=== PATIENT | male | born 1960 | race Caucasian/White ===

== ENCOUNTER → 2016-12-14 | Day surgery (SDC) | payer BC ==
[2016-12-06 10:46] VITALS: Ht 172.7 cm; Wt 92.3 kg
[~2016-12-14] VITALS: Ht 172.7 cm; Wt 92.3 kg
[~2016-12-14] MED LIST: ASCA500 PO; ASPI81TA28 PO; COEN90TA PO; LIDOCAINE HCL 2% 2 ML VIAL (20MG/ML) ONE; MIDAZOLAM HCL 1 MG/ML 2ML VIAL ONE; MULT-506 PO; OMEG10007 PO; ONDANSETRON INJ 2 MG/ML 2 ML VIAL ONE; PROPOFOL IV EMULSION 10 MG/ML 20 ML VIAL IV ONE; SIMV10TA2 PO; SODIUM CHLORIDE 0.9% 500ML 500 ML IV ONE
[2016-12-14 10:45] VITALS: TEMP 37.2
--- NOTE | 2016-12-14 11:20 | Endo History and Physical ---
History & Physical Date of Service: Dec 14, 2016. Chief Complaint: Screening, Hx polyps Referring Physician: Dr. Chandler History of Present Illness 56 yo CM who presents for colonoscopy secondary to history of colon polyps. Past Surgical History Hx Cardiac Surgery: No Hx Internal Defibrillator: No Hx Pacemaker: No Hx Abdominal Surgery: No Hx of Implantable Prosthesis: No Hx Post-Op Nausea and Vomiting: No Hx Cancer Surgery: No Hx Thoracic Surgery: No Hx Orthopedic: No Hx Urinary Tract Surgery: No Family History Polyp Social History Smoking Status: Never Smoker Hx Substance Use: No Hx Alcohol Use: Yes (OCCASIONAL) Allergies Coded Allergies: No Known Allergies (Unverified , 12/06/16) Current Medications Reported Home Medications Medications Dose Route/Sig Max Daily Dose Days Date Category Vitamin C (Ascorbic Acid) 500 Mg Tab 1 Tab PO QAM 12/06/16 Reported Aspirin Ec (Aspirin) 81 Mg Tab 81 Mg PO QAM 12/06/16 Reported [place]-3 (Fish Oil) 1 Ea Cap 1 Cap PO QAM 12/06/16 Reported Co Q10 (Coenzyme Q10) 90 Mg Tab 1 Tab PO HS 12/06/16 Reported Multivitamin (Multivitamins) Tab 1 Tab PO QAM 12/06/16 Reported Zocor (Simvastatin) 10 Mg Tab 10 Mg PO HS 12/06/16 Reported Vital Signs Weight (Kilograms): 92.27 Height (Feet): 5 Height (Inches): 8 Date Time Temp Pulse Resp B/P Pulse Ox O2 Delivery O2 Flow Rate FiO2 12/14/16 10:45 37.2 85 20 149/88 97 Room Air Physical Exam General Appearance: WD/WN, no apparent distress Respiratory/Chest: Auscultation: breath sounds normal Cardiovascular: Heart Auscultation: RRR Abdomen: Bowel Sounds: normal Inspection & Palpation: soft, non-distended, no tenderness, guarding & rebound Assessment and Plan Assessment: 56 yo CM who presents for colonoscopy secondary to history of colon polyps. Plan: Proceed with colonoscopy.
--- NOTE | 2016-12-14 11:39 | Discharge Instructions ---
Endoscopy Patient Instructions Date / Procedure(s) Performed Dec 14, 2016. Colonoscopy Allergy Information Coded Allergies: No Known Allergies (Unverified , 12/06/16) Discharge Date / Findings Dec 14, 2016. Internal hemorrhoids Medication Instructions OK to resume all medications today as prescribed Reported Home Medications Medications Dose Route/Sig Max Daily Dose Days Date Category Vitamin C (Ascorbic Acid) 500 Mg Tab 1 Tab PO QAM 12/06/16 Reported Aspirin Ec (Aspirin) 81 Mg Tab 81 Mg PO QAM 12/06/16 Reported [place]-3 (Fish Oil) 1 Ea Cap 1 Cap PO QAM 12/06/16 Reported Co Q10 (Coenzyme Q10) 90 Mg Tab 1 Tab PO HS 12/06/16 Reported Multivitamin (Multivitamins) Tab 1 Tab PO QAM 12/06/16 Reported Zocor (Simvastatin) 10 Mg Tab 10 Mg PO HS 12/06/16 Reported Provider Instructions Activity Restrictions - No exercising or heavy lifting for 24 hours. - Do not drink alcohol the day of the procedure. - Do not drive a car or operate machinery until the day after the procedure. - Do not make any important decisions or sign important papers in 24 hours after the procedure. Following Day: - Return to full activity which may include returning to work/school. Diet Start your diet with liquids and light foods (jello, soup, juice, toast). Then eat your usual diet if not nauseated. Treatment For Common After Affects For mild abdominal pain, bloating, or excessive gas: - Rest - Eat lightly - Lie on right side Follow-Up Information Follow-up with Dr. Chandler as scheduled Anesthesia Information What You Should Know You have had a procedure that required some medicine to reduce anxiety and discomfort. This treatment is called moderate sedation. After receiving the treatment, you may be sleepy, but you will be able to breathe on your own. The effects of the treatment may last for several hours. Follow these instructions along with Activity/Diet recommendations noted above: * Do NOT do anything where dizziness or clumsiness would be dangerous. * Rest quietly at home today, then you can be up and about tomorrow. * Have a responsible person stay with you the rest of today. * You may have had an I.V. today. If so, you may take the dressing off later today. Recommendations Call your doctor if: * Trouble breathing * Continuous vomiting for more than 24 hours * Temperature above 101 degrees * Severe abdominal pain or bloating * Pain not relieved by pain medicine ordered * There is increased drainage or redness from any incision * A large amount of rectal bleeding greater than 2-3 tablespoons. (If you had a polyp/s removed or have hemorrhoids, a small amount of blood - from the rectum is to be expected.) * You have any unanswered questions or concerns. IN THE EVENT OF A SERIOUS EMERGENCY, GO TO THE NEAREST EMERGENCY ROOM Your discharge instructions were prepared by provider Kaushal Barba. Patient Instructions Signature Page Art Gusman Patient (or Guardian) Signature/Date: I have read and understand the instructions given to me by my caregivers. Caregiver/RN/Doctor Signature/Date: The above-named patient and/or guardian has received patient instructions on this date. + Original Patient Signature Page (only) stays with chart. Please make copy for patient.
--- NOTE | 2016-12-14 11:42 | GI REPORT ---
Procedure Date: 12/14/2016 11:17 AM Procedure: Colonoscopy Indications: High risk colon cancer surveillance: Personal history of colonic polyps Medicines: Monitored Anesthesia Care Complications: No immediate complications. Estimated Blood Loss: Estimated blood loss: none. Procedure: Pre-Anesthesia Assessment: - Prior to the procedure, a History and Physical was performed, and patient medications and allergies were reviewed. The patient's tolerance of previous anesthesia was also reviewed. The risks and benefits of the procedure and the sedation options and risks were discussed with the patient. All questions were answered, and informed consent was obtained. Prior Anticoagulants: The patient has taken aspirin, last dose was 1 day prior to procedure. ASA Grade Assessment: II - A patient with mild systemic disease. After reviewing the risks and benefits, the patient was deemed in satisfactory condition to undergo the procedure. After I obtained informed consent, the scope was passed under direct vision. Throughout the procedure, the patient's blood pressure, pulse, and oxygen saturations were monitored continuously. The scope was introduced through the anus and advanced to the terminal ileum. The colonoscopy was performed without difficulty. The patient tolerated the procedure well. The quality of the bowel preparation was good. The terminal ileum, ileocecal valve, appendiceal orifice, and rectum were photographed. Findings: Non-bleeding internal hemorrhoids were found during retroflexion. The hemorrhoids were small. The exam was otherwise without abnormality. Impression: - Non-bleeding internal hemorrhoids. - The examination was otherwise normal. - No specimens collected. Recommendation: - Resume previous diet. - Continue present medications. - Repeat colonoscopy in 5 years for surveillance. - Return to primary care physician as previously scheduled. Kaushal Barba, DO 12/14/2016 11:41:26 AM This report has been signed electronically. Note Initiated On: 12/14/2016 11:17 AM I attest to the content of the Intraoperative Record and orders documented therein, exceptions below
[2016-12-14 12:13] VITALS: BP 111/69; PULSE 62; O2SAT 96
--- NOTE | 2016-12-14 12:34 | Anesthesiology Progress Note ---
Anesthesia Post Op Note Date & Time Dec 14, 2016 at 12:34 Vital Signs Pain Intensity: 0 Vital Signs Past 12 Hours Date Time Temp Pulse Resp B/P Pulse Ox O2 Delivery O2 Flow Rate FiO2 12/14/16 12:13 62 20 111/69 96 Room Air 12/14/16 11:58 75 20 119/66 96 Room Air 12/14/16 11:43 93 20 128/65 95 Room Air 12/14/16 10:45 37.2 85 20 149/88 97 Room Air Notes Mental Status: alert / awake / arousable, participated in evaluation Pt Amnestic to Procedure: Yes Nausea / Vomiting: adequately controlled Pain: adequately controlled Airway Patency, RR, SpO2: stable & adequate BP & HR: stable & adequate Hydration State: stable & adequate Anesthetic Complications: no major complications apparent
== END | disposition home or self-care (01) ==
LOC: C.GI 10:16
PROVIDERS: ATTEND Internal Medicine
DX: Z12.11 Encounter for screening for malignant neoplasm of colon (principal); Z86.010 Personal history of colon polyps; K64.8 Other hemorrhoids; Z79.82 Long term (current) use of aspirin

== ENCOUNTER → 2018-05-21 | Outpatient (CLI) | payer BC ==
[~2018-05-21] MED LIST changes: -LIDOCAINE HCL 2% 2 ML VIAL (20MG/ML) ONE; -MIDAZOLAM HCL 1 MG/ML 2ML VIAL ONE; -ONDANSETRON INJ 2 MG/ML 2 ML VIAL ONE; -PROPOFOL IV EMULSION 10 MG/ML 20 ML VIAL IV ONE; -SODIUM CHLORIDE 0.9% 500ML 500 ML IV ONE
[2018-05-21 10:09] LABS: ALKALINE PHOSPHATASE 78 U/L (45-117); ALT/SGPT 40 U/L (12-78); AST/SGOT 29 U/L (15-37); BLOOD UREA NITROGEN 14 mg/dl (7-18); CALCIUM 8.8 mg/dl (8.5-10.1); CARBON DIOXIDE 26 mmol/L (21-32); CHOLESTEROL 164 mg/dl (0-200); CREATININE 0.89 mg/dl (0.60-1.40); GLUCOSE 92 mg/dl (70-99); LDL CHOLESTEROL CALCULATED 90 mg/dl; POTASSIUM 4.6 mmol/L (3.5-5.1); SODIUM 137 mmol/L (136-145); TOTAL PROTEIN 7.9 gm/dl (6.4-8.2)
[2018-05-21 10:18] LABS: HEMOGLOBIN A1C 5.7 % (4.5-5.6)
== END | disposition home or self-care (01) ==
LOC: C.LAB 06:40
PROVIDERS: ATTEND Physician Assistant Medical
DX: R73.01 Impaired fasting glucose (principal); Z12.5 Encounter for screening for malignant neoplasm of prostate; W57.XXXA Bitten or stung by nonvenomous insect and other nonvenomous arthropods, initial encounter

== ENCOUNTER 2024-07-02 05:07 | Observation (INO) ==
--- NOTE | 2024-05-29 12:03 | PAT Medication Instructions ---
Medication Instructions Date of Service May 29, 2024 Home Medications Medication Instructions Recorded CPAP Machine #1 ea 12/22/20 simvastatin 10 mg tablet (Zocor) 10 mg PO QPM #90 tabs 08/10/23 sildenafil 25 mg tablet See Rx Instructions PO DAILY PRN 08/16/23 sexual activity #30 tabs aspirin 81 mg tablet,delayed release (Ecotrin Low Strength) 81 mg PO QPM coenzyme Q10 30 mg tablet 90 mg PO QPM multivitamin 1 tab PO QPM omega-3 fatty acids 1,000 mg capsule (Fish Oil Concentrate) 1,000 mg PO QPM ascorbic acid (vitamin C) 500 mg tablet 500 mg PO QPM simvastatin 10 mg tablet (Zocor) 10 mg PO QPM sildenafil 25 mg tablet See Rx Instructions PO DAILY PRN losartan 50 mg-hydrochlorothiazide 12.5 mg tablet 1 tab PO QPM meloxicam 7.5 mg tablet 15 mg PO QAM PRN triamcinolone acetonide 0.1 % topical cream 1 applic topical BID PRN ASK your surgeon for instructions meloxicam 7.5 mg tablet 15 mg PO QAM PRN ASK your prescriber and surgeon aspirin 81 mg tablet,delayed release (Ecotrin Low Strength) 81 mg PO QPM STOP taking 2 weeks before surgery (or as soon as possible if surgery is within 2 weeks) coenzyme Q10 30 mg tablet 90 mg PO QPM omega-3 fatty acids 1,000 mg capsule (Fish Oil Concentrate) 1,000 mg PO QPM STOP taking 24 hours before surgery triamcinolone acetonide 0.1 % topical cream 1 applic topical BID PRN DO NOT take the morning of surgery sildenafil 25 mg tablet See Rx Instructions PO DAILY PRN Take evening before surgery multivitamin 1 tab PO QPM ascorbic acid (vitamin C) 500 mg tablet 500 mg PO QPM simvastatin 10 mg tablet (Zocor) 10 mg PO QPM losartan 50 mg-hydrochlorothiazide 12.5 mg tablet 1 tab PO QPM Other Notes NOTHING TO EAT OR DRINK AFTER MIDNIGHT. If you have any questions please call us at [phone] or [phone] or [phone] or [phone]
--- NOTE | 2024-06-06 08:17 | Anesthesiology Consultation ---
Date of Service June 06, 2024 Assessment & Plan (1) Encounter for pre-operative examination: - Infectious disease screening: Per assessment on 06/06/24: No known recent infectious disease. Patient had onset of cold symptoms (cough, rhinorrhea, congestion) 2+ weeks ago. Negative home Covid test approximately 05/14/24. Patient seen at PAT 06/06/24- notes resolution in previous cold symptoms besides residual rare cough. DOS not until 07/02/24. Patient advised to monitor symptoms and contact surgeon/PAT if not at baseline prior to surgery. - Outpatient joint assessment: Pt currently scheduled for inpatient pathway. If surgeon requests review for outpatient joint pathway, patient is an acceptable candidate for outpatient joint program from anesthesia standpoint pending surgeon's office assessment that patient is motivated, has good support and completes Same Day Joint Program preop requirements. Chart Review Chart Review: Acceptable Risk for Surgery and Patient seen in Pre Admission Testing Teaching & Discussion Pre-Anesthesia Teaching/Discussion Notes: Instructed NPO after midnight before surgery,except medications with 15 cc of water. Medication instructions provided according to the [facility] guidelines. History Surgery Operation Date: 07/02/24 08:50 Proposed Procedures p Right Total Hip Arthroplasty - Derick Cruz MD Height/Weight Height: 5 ft 8.5 in Weight: 98.7 kg Allergies Allergy/AdvReac Type Severity Reaction Status Date / Time lisinopril AdvReac Intermediate cough Verified 05/28/24 15:39 house dust AdvReac Mild Verified 05/28/24 15:39 Medications Home Medications Medication Instructions Recorded Confirmed Last Taken aspirin 81 mg tablet,delayed 81 mg PO QPM 06/06/19 05/28/24 11/07/22 release (Ecotrin Low Strength) coenzyme Q10 30 mg tablet 90 mg PO QPM 06/06/19 05/28/24 11/09/22 multivitamin 1 tab PO QPM 06/06/19 05/28/24 11/09/22 omega-3 fatty acids 1,000 mg 1,000 mg PO QPM 06/06/19 05/28/24 11/09/22 capsule (Fish Oil Concentrate) ascorbic acid (vitamin C) 500 mg 500 mg PO QPM 07/22/19 05/28/24 11/09/22 tablet CPAP Machine #1 ea 12/22/20 04/11/24 Unknown simvastatin 10 mg tablet (Zocor) 10 mg PO QPM #90 tabs 08/10/23 05/28/24 Unknown sildenafil 25 mg tablet See Rx Instructions PO DAILY PRN 08/16/23 05/28/24 Unknown sexual activity #30 tabs losartan 50 mg-hydrochlorothiazide 1 tab PO QPM 05/28/24 05/28/24 Unknown 12.5 mg tablet meloxicam 7.5 mg tablet 15 mg PO QAM PRN pain 05/28/24 05/28/24 Unknown triamcinolone acetonide 0.1 % 1 applic topical BID PRN Rash 05/28/24 05/28/24 Unknown topical cream Past Medical History Medical History Allergic rhinitis Arthritis of right hip Hx of colonic polyps Hyperlipidemia Hypertension Impaired fasting glucose Per records Nocturnal hypoxemia JESUS (obstructive sleep apnea) CPAP (compliant) Right hip pain Exercise / Class Metabolic Activity II 4-5 Yardwork/Stairs/Walk up hill Past Family History Family History Father Cardiac disorder Hypertension Other Coronary heart disease Diabetes No family history of adverse response to anesthesia Past Surgical History Surgical History Hx of colonoscopy with polypectomy Past Anesthesia History No Hx of Anesthesia Complications and No Family Hx of Anesthesia Complications History of PONV No Hx of PONV and No Hx of Motion Sickness Social History Smoking Status: Never smoker tobacco type: smokeless tobacco Do You Dip or Chew Tobacco: Yes (1 can per day (advised none DOS)) Hx Alcohol Use: Yes Alcohol type: beer alcohol intake frequency: holidays/special occasions only Hx Substance Use: No substance use type: does not use Review of Systems Patient denies chest pain, shortness of breath, dyspnea on exertion, fever, chills, cough, wheezing, palpitations. Physical Exam Vital Signs BP 123/81 P 68 TEMP 98.1 SP02 95%RA RESP 16 Physical Full cervical extension range of motion. Full TMJ range of motion. TMD > 3.5 finger breaths Mallampati Score III Dentition: intact, + crown Lungs: clear throughout to auscultation Cardiac: regular rate and rhythm, no murmurs noted Spine: normal Carotid arteries: negative bruit Extremities: no LE edema Lab Results Anesthesia Preop Results Results Anesthesia Widget: WBC 6.40 K/ul (4.8-10.8) 06/06/24 Hgb 14.5 g/dl (14.0-18.0) 06/06/24 Hct 42.6 % (42.0-52.0) 06/06/24 Plt 282 K/uL (130-400) 06/06/24 Na 136 mmol/L (136-145) 06/06/24 K 4.4 mmol/L (3.5-5.1) 06/06/24 Cl 101 mmol/L (98-107) 06/06/24 CO2 29 mmol/L (21-32) 06/06/24 BUN 17 mg/dl (6-23) 06/06/24 Creat 0.87 mg/dl (0.6-1.4) 06/06/24 Glucose Level 96 mg/dl (70-99(Fasting)) 06/06/24 PT 11.1 Seconds (9.0-12.0) 06/06/24 PTT 29 Seconds (21-31) 06/06/24 INR 1.0 (0.9-1.1) 06/06/24 Blood Type A Negative 06/06/24 Antibody Screen NEGATIVE 06/06/24 Testing Electrocardiogram Date: 06/06/24 SR with first degree AVB at 64bpm. "Otherwise normal ECG" Chest X-Ray Date: 06/06/24 Findings: + NAD
--- NOTE | 2024-06-19 13:44 | History & Physical Report ---
Date of Service June 19, 2024 Assessment & Plan (1) Arthritis of right hip: 64-year-old male with a several year history of progressive hip pain discomfort and progressive hip arthritis. He has failed conservative treatment. It is affecting his quality life he like Side effects. Plan: Pia taken the operating do right total hip placement the risks Mente this procedure explained the patient include but not limited to a DVT PE infection neurological injury vascular disease pain limb range of motion this is fairly of symptoms incomplete relief of symptoms need for further surgery in future excetra. The patient understands and desires to proceed. Informed consent obtained. He is vincenzo plan stay in the hospital overnight. Discharge limited to postoperative day 1 without home health. (2) Hyperlipidemia: (3) Hypertension: History of Present Illness Chief Complaint: . Persistent and progressive right hip pain. Primary Care Provider: Omaira Chandler MD . The patient is a 64-year-old gentleman and has been of a total hip/total knee patient of mine who presents for treatment of his right hip. He was initially seen seen by Billy about 3 years ago for the really hip pain discomfort is gradually gotten worse over time describes groin pain thigh pain. Radiates down to his knee but really no further. He has good and bad days but have more bad days recently. Describes groin pain that increases as the day goes on. He limps more as the day goes on. This started to really limit his lifestyle. He right to have it fixed. Denies any numbness or radicular symptoms. Allergies Allergy/AdvReac Type Severity Reaction Status Date / Time lisinopril AdvReac Intermediate cough Verified 05/28/24 15:39 house dust AdvReac Mild Verified 05/28/24 15:39 Home Medications Medication Instructions Recorded Confirmed Type aspirin 81 mg tablet,delayed 81 mg PO QPM 06/06/19 05/28/24 History release (Ecotrin Low Strength) coenzyme Q10 30 mg tablet 90 mg PO QPM 06/06/19 05/28/24 History multivitamin 1 tab PO QPM 06/06/19 05/28/24 History omega-3 fatty acids 1,000 mg 1,000 mg PO QPM 06/06/19 05/28/24 History capsule (Fish Oil Concentrate) ascorbic acid (vitamin C) 500 mg 500 mg PO QPM 07/22/19 05/28/24 History tablet CPAP Machine #1 ea 12/22/20 04/11/24 Rx simvastatin 10 mg tablet (Zocor) 10 mg PO QPM #90 tabs 08/10/23 05/28/24 Rx sildenafil 25 mg tablet See Rx Instructions PO DAILY PRN 08/16/23 05/28/24 Rx sexual activity #30 tabs losartan 50 mg-hydrochlorothiazide 1 tab PO QPM 05/28/24 05/28/24 History 12.5 mg tablet meloxicam 7.5 mg tablet 15 mg PO QAM PRN pain 05/28/24 05/28/24 History triamcinolone acetonide 0.1 % 1 applic topical BID PRN Rash 05/28/24 05/28/24 History topical cream Past Med/Surg History Problem List Arthritis of right hip History of colon polyps (Chronic) Hyperlipidemia (Chronic) Allergic rhinitis (Chronic) Hypertension (Chronic) Medical History JESUS (obstructive sleep apnea) CPAP (compliant) Nocturnal hypoxemia Impaired fasting glucose Per records Allergic rhinitis Right hip pain Arthritis of right hip Hyperlipidemia Hypertension Hx of colonic polyps Surgical History Hx of colonoscopy with polypectomy Family History Father Cardiac disorder Hypertension Other Coronary heart disease Diabetes No family history of adverse response to anesthesia Social History Smoking Status: Never smoker Second Hand Exposure: No; Do You Dip or Chew Tobacco: Yes (1 can per day (advised none DOS)); Hx Alcohol Use: Yes Alcohol type: beer Alcohol Intake Frequency Comment: socially Hx Substance Use: No Preferred Language: Spanish Communication Ability: Effective Hearing Ability: Normal Director Meetings Required: No Beliefs That Will Affect Care: None marital status: Current Living Situation: Spouse current occupational status: employed Feels Safe at Home: Yes Diet: regular caffeine: Yes Dental Care, Regularly: Yes Physical Activity Frequency: 3-4 Times per Week Seatbelt Use: always Sunscreen Use: No Assistive Devices: CPAP and Glasses Review of Systems All systems reviewed & are unremarkable except as noted in HPI & below. Physical Exam . Physical examination reveals a healthy pleasant middle-age male. Looks in good health. Examination of the right hip reveals a patient walks with slightly antalgic gait. Leg lengths. Pretty clinically equal please get stiffness and pain with hip motion. He can internally rotate to neutral at best. This does recreate his pain. Negative straight leg raise. He is neurologically intact. Constitutional WD/WN, vitals as above Neck trachea midline, no thyromegaly Respiratory normal respiratory effort, lungs clear to auscultation Cardiovascular RRR, no murmur, no edema Gastrointestinal (Abdomen) normal bowel sounds, soft, nontender, no hepatosplenomegaly Results & Data Results & Data Laboratory Results . Diagnostic Findings . X-rays of the right hip were reviewed. Shows advanced hip arthritis. Is got complete loss of his superior joint space. He is got cystic changes on both sides of the joint. This has progressed most recent x-rays. PG Care Time/CCT Total # of Minutes Spent Total Time Spent with Patient: Total time spent is greater than 50% in coordination of care (as documented) at patient's floor/unit and/or counseling patient: Coding Level of Care Code None Diagnoses Arthritis of right hip M16.11 Hyperlipidemia E78.5 Hypertension I10
[2024-07-02] MEDS: FAMOTIDINE 20 MG TAB PO SCH (05:38)
[2024-07-02] MEDS: METOCLOPRAMIDE HCL 10 MG TABLET PO SCH (05:38)
[2024-07-02] MEDS: dexAMETHasone**PF** 10 MG/ML VIAL IV SCH (05:38)
[2024-07-02] MEDS: ACETAMINOPHEN 500 MG TAB PO SCH ×2 (05:38→21:17)
[2024-07-02] MEDS: Scopolamine 1 MG TDSY TD SCH (05:38)
[2024-07-02] MEDS: LR 60ML/HR IV SCH (05:39)
[2024-07-02] MEDS: CeleBREX 200 MG CAP PO SCH (05:39)
[2024-07-02] MEDS: LR 15ML/HR IV SCH (05:42)
[2024-07-02] MEDS ORDERED: LR 500ML BOLUS, THEN 15ML/HR IV SCH (06:00)
[2024-07-02] MEDS ORDERED: BUPIVACAINE 0.5 % 5 MG/1 ML PF 10ML VIAL ONE (06:27)
[2024-07-02] MEDS ORDERED: MIDAZOLAM HCL 1 MG/ML 2ML VIAL ONE (06:38)
[2024-07-02] MEDS ORDERED: ATROPINE SULFATE 0.1 MG/ML 10ML SYR IV PRN (06:42)
[2024-07-02] MEDS ORDERED: PROMETHAZINE HCL 6.25 MG in SODIUM CHLORIDE 0.9% 50 ML IV PRN (06:42)
[2024-07-02] MEDS ORDERED: ONDANSETRON INJ 2 MG/ML 2 ML VIAL IV PRN ×2 (06:42→10:04)
[2024-07-02] MEDS ORDERED: ePHEDrine sulfate 50 MG/ML AMP IV PRN (06:42)
[2024-07-02] MEDS ORDERED: fentaNYL citrate PF 100 MCG/2 ML VIAL IV PRN (06:42)
[2024-07-02] MEDS: TRANEXAMIC ACID 1,000 MG **IV Pre-op IV SCH (06:45)
[2024-07-02] MEDS ORDERED: PROPOFOL IV EMULSION 10 MG/ML 20 ML VIAL IV ONE (06:45)
--- NOTE | 2024-07-02 06:50 | History & Physical Bridge Note ---
Date of Service July 02, 2024 History & Physical Bridge Note I have examined the patient, reviewed the History & Physical and in the interval since the performance of the History & Physical I have noted the following changes of clinical significance: no changes noted
[2024-07-02] MEDS: ceFAZolin 2000MG 2,000 MG/15 ML SYR IV SCH ×2 (06:59→15:20)
[2024-07-02] MEDS ORDERED: PHENYLEPHRINE HCL 10 MG/ML VIAL ONE (07:23)
[2024-07-02] MEDS: BUPIVACAINE/EPINEPHRINE 0.5% MPF 1:200,000 30 ML VIAL ONE (07:23)
[2024-07-02] MEDS ORDERED: GLYCOPYRROLATE 0.2 MG/ML VIAL ONE (08:00)
[2024-07-02] MEDS ORDERED: ePHEDrine sulfate 50 MG/5 ML SYR ONE (08:00)
--- NOTE | 2024-07-02 08:22 | Operative Report ---
PG Post Operative Report Pre & Post Diagnosis Operation Date: 07/02/24 07:00 Pre-Op Diagnosis: Degenerative Joint Disease Right Hip Post-Op Diagnosis: Degenerative Joint Disease Right Hip I identified the patient and participated in the time-out.: Yes Procedure Operation Date: 07/02/24 07:00 Actual Procedures p Right Total Hip Arthroplasty(Right) - Derick Cruz MD Surgeon Derick Cruz MD Marketing Reporting Analyst Billy Green PA-C Estimated Blood Loss 100 Findings Consistent with Post-Op Diagnosis Operative findings revealed advanced right hip arthritis. He had a grade 4 uptf-of-ofgk disease of the femoral head and acetabulum. A moderate-sized joint effusion. Mild lateral osteophyte formation. Specimens Right femoral head sent for pathology. Drains None Anesthesia Type Spinal MAC Complications none Disposition Accompanied Patient To Recovery: No Indications Patient is a 64-year-old gentleman whose had about a 3 to 4-year history of gradually progressive increasing right hip pain and discomfort. He failed conservative measures. X-rays that showed progressive hip arthritis. He elected proceed with right total hip arthroplasty. Description of Procedure Operative implants consist of: 1 Biomet G7 size 54 mm acetabular shell. 2. 6.5 cancellous acetabular screws 135 mm in length and 130 mm length. 3. [place] hole poultry farmworker. 4. Highly cross-linked polyethylene liner with a 54 mm outer diameter and 36 mm diameter. 5. DePuy Corail size 11 KLA femoral stem. 6. +1.5/36 mm ceramic articular ball. The patient was taken to the op room, identified, placed on the operating table in the supine position. All contact areas were appropriately padded. IV antibiotics by anesthesia team. Spinal anesthetic was implemented. This is an amended in the holding area by the anesthesia team. The patient was then placed in the left lateral decubitus position. An axillary roll was placed. Stolberg Positioner was used for positioning. The right hip and leg were then prepped and draped in usual sterile fashion. Posterolateral approach to the right hip was then performed to permit incision centered over the greater trochanter. Sharp dissection was Through subcutaneous Cystemme of the IT band and gluteal fascia. The IT band gluteal fascia incised longitudinally in line with skin incision. The underlying greater and bursa was excised. The piriformis neck, rotators along with the posterior hip joint capsule was then released from the posterior aspect of the hip as a single layer. Great care was taken to protect the sciatic nerve at all times. The hip was internally rotated and dislocated. The femoral neck osteotomy cut was made with clamp about 10 mm above the lesser trochanter. Femoral head was removed and sent for pathology. The femur was retracted anteriorly. Attention drawn the acetabulum. The acetabular labrum was excised to the pulmonary sequential reaming the acetabulum was then performed beginning with a size 45 and progressing up to a 53. I then reamed a little bit with a 54 reamer and placed a 54 mm Biomet G7 acetabular shell in about 40 degree lateral opening of 20 degrees of anteversion. It was fixed with two 6.5 cancellous acetabular screws. Trial liner was placed. Attention drawn the femur. The proximal femurs are with a photographic platemaker followed by canal finder. I then broached beginning with size 8 and progressing up to a 10. We then trialed the hip and the +5 articular balsamic recreated appropriate stability and leg lengths and soft tissue tension. However, after dislocating the hip there is still some rotational looseness. Therefore we broached up to 11. We got a very tight fit and it took several well broaches and approach passes to get this down. Got this down without my extreme difficulty. We elected to use these implants with the 11 stem. Ultrasound. Inguinal hernia and a peritoneal layer was placed. Highly cross- linked polyethylene liner was placed. A K-Lyte DS size 11 stem was then placed. I got this about 4 to 5 mm above the calcar cut and could not advance it any further. We elected to leave it in place for fear of fracturing the femur. Therefore we use a +1.5 articular ball in order to compensate for the slight change in leg length. We relocated the hip. The hip was fully stable. The leg lengths appeared equal. Soft tissue tension seemed appropriate. No proceeded with closure. The wound was irrigated Co-proxamol pulsatile lavage solution. I injected with 60 cc of half percent Marcaine with epinephrine. The posterior capsule and external rotators were then repaired the drill holes in the posterior trochanter with #2 Tycron suture. The IT band gluteal fascia with PDS suture in running fashion to subcutaneous tissue then closed in 2 layers deep layer #1 Vicryl suture in the subcutaneous tissues with 2-0 Dexon suture in a buried interrupted fashion. Skin was closed with skin angel. Legs then cleaned and dried a sterile dressing with Xeroform, 4 fourths, ABD pad, foam tape was applied. The patient was then transferred to the recovery in stable condition. Patient tolerated procedure well and there were no complications. Billy Green, my physician security assistant, was present for the entire procedure. His assistance was essential and required for appropriate patient positioning, prepping and draping, surgical exposure, performing the technical details of the operation, placement the implants, closure of the wound, and placement of the sterile bandage. I attest to the content of the Intraoperative Record and any orders documented therein. Any exceptions are noted below.
--- NOTE | 2024-07-02 09:32 | XRay Report ---
XR hip 1V RT w pelvis HISTORY: 64 years-old Male IN PACU - Post Surgical right hip arthroplasty COMPARISON: 02/09/2024 TECHNIQUE: AP view of the pelvis with 2 views of the right hip FINDINGS: Mild left posterolateral arthritis. Satisfactory alignment of the right hip arthroplasty. Lateral ski n angel with expected postoperative soft tissue swelling and deep tissue air. IMPRESSION: Right hip arthroplasty with expected postoperative changes. ACT 112: Negative or not required by law. The above report was generated using voice recognition software. It may contain grammatical, syntax o r spelling errors. Electronically signed by: Johny Davies M.D. 07/02/2024 9:31 AM
[2024-07-02] MEDS ORDERED: ACETAMINOPHEN 500 MG TAB PO SCH (10:04)
[2024-07-02] MEDS ORDERED: HYDROmorphone INJ 0.5 MG/0.5 ML SYR IV PRN (10:04)
[2024-07-02] MEDS ORDERED: NALOXONE HCL 0.4 MG/1 ML VIAL/CARP IV PRN (10:04)
[2024-07-02] MEDS ORDERED: TRIAMCINOLONE ACET 0.1% CR 15 GM TUBE TOP PRN (10:04)
[2024-07-02] MEDS ORDERED: METOCLOPRAMIDE HCL INJ 5 MG/ML 2 ML VIAL IV PRN (10:04)
[2024-07-02] MEDS ORDERED: ALUMINUM/MAGNESIUM SUSP 30 ML UDC PO PRN (10:04)
[2024-07-02] MEDS ORDERED: diphenhydrAMINE Capsule 25 MG CAP PO PRN (10:04)
[2024-07-02] MEDS ORDERED: bisacodyL 10 MG SUPP PR PRN (10:04)
[2024-07-02] MEDS ORDERED: MAGNESIUM HYDROXIDE SUSP 30 ML UDC PO PRN (10:04)
[2024-07-02] MEDS ORDERED: traMADol HCL 50 MG TABLET PO PRN (10:04)
[2024-07-02] MEDS: TAMSULOSIN HCL 0.4 MG CAP PO SCH (11:47)
[2024-07-02] MEDS: MULTIVITAMIN TAB PO SCH (11:48)
[2024-07-02] MEDS: SODIUM CHLORIDE 0.9% 1,000 ML IV SCH (11:49)
[2024-07-02] MEDS: ASPIRIN 81 MG ECTAB PO SCH (11:50)
[2024-07-02] MEDS: DOCUSATE SODIUM 100 MG CAP PO SCH (11:53)
[2024-07-02] MEDS: KETOROLAC 30 MG/ML VIAL IV SCH (11:54)
[2024-07-02] MEDS: SENNA 8.6 MG TAB PO SCH ×2 (13:00→21:14)
--- NOTE | 2024-07-02 13:42 | Anesthesiology Progress Note ---
Date of Service July 02, 2024 Anesthesia Post Procedure Vital Signs Vital Signs: Temp Pulse Pulse Resp BP Pulse Ox O2 Del Method 07/02/24 12:40 80 18 125/74 95 Room Air 07/02/24 11:37 82 18 121/78 98 Room Air 07/02/24 10:43 81 18 139/83 96 Room Air 07/02/24 10:05 36.4 C L 77 18 114/73 97 Room Air 07/02/24 09:19 36.4 C L 81 16 124/82 96 Room Air 07/02/24 08:55 90 13 106/67 100 Room Air 07/02/24 08:45 87 13 99/72 L 98 Oxymask 07/02/24 08:35 93 H 16 113/78 98 Oxymask 07/02/24 08:25 101 H 12 112/70 98 Oxymask 07/02/24 08:15 36.0 C L 113 H 14 97/62 L 100 Oxymask 07/02/24 05:26 36.7 C 85 20 146/83 H 98 Room Air O2 Flow Rate 07/02/24 12:40 07/02/24 11:37 07/02/24 10:43 07/02/24 10:05 07/02/24 09:19 07/02/24 08:55 07/02/24 08:45 1 07/02/24 08:35 3 07/02/24 08:25 3 07/02/24 08:15 5 07/02/24 05:26 Transfer of Care Handoff Completed per policy Notes Mental Status: alert / awake / arousable and participated in evaluation Patient Amnestic to Procedure: Yes Nausea / Vomiting: adequately controlled Pain: adequately controlled Airway Patency, RR, SpO2: stable & adequate BP & HR: stable & adequate Hydration State: stable & adequate Neuraxial Anesthesia: was administered and sensory block is resolving Anesthetic Complications: no major complications apparent and Pt Satisfied with anesthetic care
[2024-07-02] MEDS: TRANEXAMIC ACID / 0.7% NACL 1,000 MG/100 ML BAG IV SCH (15:20)
[2024-07-02] MEDS: Scopolamine CHECK PATCH PLACEMENT SCH (15:21)
[2024-07-02] MEDS ORDERED: NON-FORMULARY MEDICATION (Multivitamin tablet) PO SCH (21:00)
[2024-07-02] MEDS ORDERED: COENZYME Q10 30 MG PO SCH (21:00)
[2024-07-02] MEDS: ASCORBIC ACID 500 MG TAB PO SCH (21:14)
[2024-07-02] MEDS: SIMVASTATIN 10 MG TAB PO SCH (21:14)
[2024-07-02] MEDS: OMEGA-3 (PURIFIED FISH OIL) 1 GM CAP PO SCH (21:14)
[2024-07-02] MEDS: LOSARTAN/HCTZ 50/12.5MG TAB PO SCH (21:14)
[2024-07-02 23:13] VITALS: RESP 18
[2024-07-03 06:44] LABS: Basophils # (auto) 0.01 K/uL (0.00-0.20); Basophils % (auto) 0.1 %; Eosinophils # (auto) 0.01 K/uL (0.00-0.50); Eosinophils % (auto) 0.1 %; Hematocrit (blood only) 32.2 % (42.0-52.0); Immature Granulocytes # (auto) 0.09 K/uL (0.01-0.20); Immature Granulocytes % (auto) 0.7 %; Lymphocytes # (auto) 1.25 K/uL (1.20-3.40); Lymphocytes % (auto) 9.5 %; Mean Corpuscular Hemoglobin 30.5 pg (25.0-34.0); Mean Corpuscular Hgb Conc 34.2 g/dL (32.0-36.0); Mean Corpuscular Volume 89.2 fL (80.0-100.0); Mean Platelet Volume 8.9 fL (9.4-12.4); Monocytes % (auto) 9.8 %; Neutrophils # (auto) 10.55 K/uL (1.40-6.50); Neutrophils % (auto) 79.8 %; Platelet Count 241 K/uL (130-400); RDW Coefficient of Variation 12.2 % (11.5-14.5); RDW Standard Deviation 39.9 fL (36.4-46.3); Red Blood Count 3.61 M/uL (4.70-6.10); White Blood Count 13.21 K/ul (4.8-10.8)
[2024-07-03 07:07] LABS: BUN Creatinine Ratio 17.2 (10-20); Calcium 8.5 mg/dl (8.6-10.3); Est GFR (African American) 105.7 ml/min; Est GFR (Non-African American) 91.2 ml/min; Potassium 4.3 mmol/L (3.5-5.1)
[2024-07-03 07:10] VITALS: BP 106/64; PULSE 61; TEMP 98.1; O2SAT 97
[2024-07-03] MEDS: dexAMETHasone 10 MG in SYRINGE 0 ML IV SCH (08:53)
--- NOTE | 2024-07-03 11:59 | Orthopedic Progress Note ---
Date of Service July 03, 2024 Assessment & Plan (1) Status post right hip replacement: Plan: 84-year-old gentleman postop day 1 from right hip replacement doing well. Pain is controlled. Hips located. He is neurologically intact. The therapy went well. Had a little difficulty lifting his leg on his own which was normal. Plan: 1. DVT prophylaxis including Thiede teds, SCDs, aspirin twice a day. 2. PT/OT. Weight-bear as tolerated. Right total hip protocol. 3. Pain control. Doing okay with current pain regimen. 4. Disposition. Plan to discharge to home with home health today. Admission and Anticipated Discharge Date Admission Date: July 02, 2024 Subjective 54-year-old gentleman postoperative day 1 from a right total hip replacement. He is doing pretty well. Have a little difficulty getting out of bed but he did well in therapy walking going up and down stairs. Pain is controlled. No chest pain or shortness of breath. Not feeling dizzy or lightheaded. Physical Exam Physical Exam: Physical examination is a pleasant middle-age male 3 cm bedside chair looks comfortable. Examination of the hip reveals dressing clean dry and intact. Leg lengths are equal. Thigh is soft and supple. He is neurologically intact. Respiratory: normal respiratory effort, lungs clear to auscultation Cardiovascular: RRR, no murmur, no edema Gastrointestinal (Abdomen): normal bowel sounds, soft, nontender, no hepatosplenomegaly Results & Data Vital Signs (Past 12 Hours) Vital Signs Temp Pulse Pulse Resp BP Pulse Ox O2 Del Method 07/03/24 07:08 36.7 C 61 18 106/64 97 Room Air 07/03/24 04:49 36.8 C 62 18 114/69 96 Room Air Laboratory Results Hemoglobin is 11.0. Hematocrit is 32.2. Electrolytes are stable.
--- NOTE | 2024-07-05 06:26 | Discharge Summary ---
Date of Service July 05, 2024 Discharge Data Procedures Performed Operation Date: 07/02/24 07:00 Actual Procedures p Right Total Hip Arthroplasty(Right) - Derick Cruz MD Hospital Course (1) Status post right hip replacement: This is a 64 year old patient admitted on 07/02/24 and underwent total hip arthroplasty. He tolerated the procedure well and there were no complications. Transferred to the PACU post op and later to the orthopedic floor for further care. He was given ancef for antibiotic prophylaxis. He was also given MERRILL stockings, SCDs, and aspirin for DVT prophylaxis. Hemoglobin, hematocrit, and vital signs were monitored during his hospital stay and remained stable. Did not require any blood transfusions. There were no complications during his hospital stay. By post op day #1 the patient was tolerating a regular diet, pain was reasonably controlled with oral pain medicine, and he was participating in physical therapy. On post op day #1 the patient was discharged home and set up with home health care. He was given printed discharge instructions including prescriptions for extra strength tylenol, aspirin, ketorolac, zofran, senokot, flomax, and tramadol. Continue hip precautions. Continue physical therapy, weight bearing as tolerated. Continue MERRILL stockings. Follow up approximately 2 weeks post op or sooner if there are problems or concerns. Coding Level of Care Code None Diagnoses Status post right hip replacement Z96.641
== END 2024-07-03 13:56 | disposition home health service (06) ==
LOC: ASU 05:07 → 3E 05:07
DX: Z68.32 Body mass index [BMI] 32.0-32.9, adult; M25.751 Osteophyte, right hip; Z79.82 Long term (current) use of aspirin; E78.5 Hyperlipidemia, unspecified; E66.9 Obesity, unspecified; Z79.899 Other long term (current) drug therapy; Z88.8 Allergy status to other drugs, medicaments and biological substances; I10 Essential (primary) hypertension; M25.451 Effusion, right hip; Z91.09 Other allergy status, other than to drugs and biological substances; M16.11 Unilateral primary osteoarthritis, right hip; G47.33 Obstructive sleep apnea (adult) (pediatric)